=== PATIENT | male | born 1995 | race Caucasian/White ===

== ENCOUNTER 2016-10-07 20:19 | Emergency (ER) | payer OTHER ==
[~2016-10-07] VITALS: Ht 175.3 cm; Wt 97.0 kg
[2016-10-07 20:22] VITALS: BP 148/104; PULSE 83; RESP 15; TEMP 98.7; O2SAT 98
[2016-10-07] MEDS ORDERED: HYDR-3533 PO (21:49)
[2016-10-07] MEDS ORDERED: AUGM875T3 PO (21:49)
--- NOTE | 2016-10-07 21:56 | PD ---
HPI Chief Complaint: Skin Problem Time Seen by Provider: 21:53 Travel History International Travel<30 days: No Contact w/Intl Traveler<30days: No Traveled to known affect area: No History of Present Illness HPI 21-year-old male presents emergency Department with complaints of a open draining lump on his buttock for the past week. He states that it had become increasing painful and swollen over the past week area today and started open and draining. He denies any history of prior abscess. He denies any fever chills. No nausea vomiting. No abdominal pain. He states the pain is mild to moderate. No alleviating factors. Worse with sitting PFSH Past Medical History Medical History: Denies Significant Hx Respiratory: Yes (ASTHMA) Tetanus Vaccination: Unknown Influenza Vaccination: No Past Surgical History Appendectomy: Yes Social History Alcohol Use: No Tobacco Use: No Substance Use: No Allergies-Medications (Allergen,Severity, Reaction): Coded Allergies: No Known Allergies (Unverified , 10/07/16) Reported Meds & Prescriptions Reported Meds & Active Scripts Active Lortab (Hydrocodone-Acetaminophen) 5-325 Mg Tab 1 Tab PO Q4H PRN Augmentin (Amoxicillin-Clavulanate) 875-125 Mg Tab 1 Tab PO BID Review of Systems Except as stated in HPI: all other systems reviewed are Neg Physical Exam Narrative GENERAL: This is a well-nourished, well-developed patient, in no apparent distress. SKIN: Patient has an open draining pilonidal cyst in the gluteal crease. This measures 3 x 3 cm. It is tender, erythematous. Mild swelling. No fluctuance or pointing HEAD: Atraumatic. Normocephalic. EYES: PERRL, EOMI, no discharge or injection. No scleral icterus. EARS: Clear NOSE: Nasal turbinates appear normal. THROAT: Mucosa pink and moist. Airway patent. NECK: Trachea midline. supple, moves head freely. LUNGS: Clear to auscultation. CV: Regular in rhythm. ABDOMEN: Soft nontender. EXT: No clubbing cyanosis or edema. Data Data Last Documented VS Vital Signs Date Time Temp Pulse Resp B/P Pulse Ox O2 Delivery O2 Flow Rate FiO2 10/07/16 20:22 98.7 83 15 148/104 98 Room Air Orders Amoxicil-Clavulanate (Augmentin) (10/07/16 22:00) Acetamin-Hydrocod 325-5 Mg (Ragland 5-325 (10/07/16 22:00) MDM Medical Decision Making Medical Screen Exam Complete: Yes Emergency Medical Condition: Yes Medical Record Reviewed: Yes Differential Diagnosis MDM: High Differential diagnoses: Abscess, folliculitis, cellulitis, lymphangitis, abrasion, contact dermatitis Narrative Course This is a draining infected pilonidal cyst. Patient's given Augmentin 875 and Lortab 5 a grams by mouth. Diagnosis Primary Impression: Infected pilonidal cyst Patient Instructions: Narcotic given in the ED, General Instructions Additional Instructions: Rest. Elevation. keep clean and dry. Sits baths 3-4 times a day. Daily wound care with soap and water. Three Advil every 6 hours. Augmentin and Lortab. Follow-up with a colorectal surgeon in 1 week. Follow-up with a primary care doctor in one week. Return to the ER for any problems. Med/Other Pt SpecificInfo: Prescription(s) given, Wound Care Scripts Hydrocodone-Acetaminophen (Lortab)5-325 Mg Tab1 Tab PO Q4H PRN (PAIN) #12 TAB Prov:Bradley Doll MD 10/07/16 Amoxicillin-Clavulanate (Augmentin)875-125 Mg Tab1 Tab PO BID #20 TAB Prov:Bradley Doll MD 10/07/16 Disposition: 01 DISCHARGE HOME Condition: Stable Leonardo Krishnamurthy Oct 07, 2016 21:55
[2016-10-07] MEDS ORDERED: AMOXICILLIN/CLAVULANATE K 875 MG TAB PO ONE (22:00)
[2016-10-07] MEDS ORDERED: ACETAMINOPHEN/HYDROcodone 325 MG/5 MG TAB PO ONE (22:00)
== END 2016-10-07 22:11 | disposition home or self-care (01) ==
LOC: NEPD 20:19
DX: L05.91 Pilonidal cyst without abscess (principal)
CPT/HCPCS: 99284